=== PATIENT | male | born 2000 | race Caucasian/White ===

== ENCOUNTER 2019-10-23 23:23 | Emergency (ER) | payer MEDICAID ==
[~2019-10-23] VITALS: Ht 180.3 cm; Wt 83.0 kg
[2019-10-23] MEDS ORDERED: IBUPROFEN 600 MG TABLET ONE (23:53)
[2019-10-24] MEDS ORDERED: IBUPROFEN 200 MG TABLET PO ONE
[2019-10-24 00:12] LABS: RAPID INFLUENZA A Negative (Negative); RAPID INFLUENZA B Negative (Negative)
[2019-10-24] MEDS ORDERED: AMOXICILLIN/CLAV 875-125MG TABLET PO ONE (00:30)
[2019-10-24] MEDS ORDERED: AMOXICILLIN/CLAV 875-125MG TABLET ONE (00:31)
[2019-10-24 00:34] VITALS: BP 102/50
== END 2019-10-24 00:49 | disposition home or self-care (01) ==
LOC: ED 10-24 00:20
DX: R50.9 Fever, unspecified (principal)
CPT/HCPCS: 71045; 87400; 99284